=== PATIENT | male | born 1960 | race Caucasian/White ===

== ENCOUNTER 2018-05-23 21:27 | Observation (INO) | payer OTHER ==
[~2018-05-23] VITALS: Ht 177.8 cm; Wt 97.9 kg
[2018-05-23 22:00] LABS: BASOPHILS ABSOLUTE AUTO 0.11 K/mm3 (0.00-0.23); BASOPHILS PERCENT AUTO 1 % (0-2); EOSINOPHILS ABSOLUTE AUTO 0.17 K/mm3 (0.00-0.68); EOSINOPHILS PERCENT AUTO 2 % (0-6); Hemoglobin 16.5 g/dL (13.5-17.5); IMMATURE GRAN ABSOLUTE AUTO 0.04 K/mm3 (0.00-0.10); IMMATURE GRAN PERCENT AUTO 0 % (0-1); LYMPHOCYTES ABSOLUTE AUTO 4.05 K/mm3 (0.84-5.20); LYMPHOCYTES PERCENT AUTO 36 % (21-46); MONOCYTES ABSOLUTE AUTO 0.94 K/mm3 (0.16-1.47); MONOCYTES PERCENT AUTO 8 % (4-13); Mean Corpuscular HGB Conc 34.4 g/dL (31.5-36.5); Mean Corpuscular Volume 87 fL (80-100); Mean Platelet Volume 10.5 fL (9.1-12.4); NEUTROPHILS ABSOLUTE AUTO 5.89 K/mm3 (1.96-9.15); NEUTROPHILS PERCENT AUTO 53 % (41-73); Platelet Count 209 K/mm3 (150-400); RDW Standard Deviation 38.8 fL (35.1-46.3)
[2018-05-23] MEDS ORDERED: PRED20 PO (22:06)
[2018-05-23] MEDS ORDERED: FOLBIC RF TABL1 EACH PO (22:11)
[2018-05-23] MEDS ORDERED: CYAN1000I PO (22:11)
[2018-05-23 22:12] LABS: Anion Gap 6 mmol/L (6-16); Blood Urea Nitrogen 18 mg/dL (8-24); Bun/Creatinine Ratio 16.8 (12.0-20.0); CO2, Blood 27 mmol/L (21-32); Calcium, Blood 8.6 mg/dL (8.5-10.1); Chloride, Blood 102 mmol/L (98-108); Creatinine, Blood 1.07 mg/dL (0.60-1.20); Glomerular Filtration Rate >60 (60-); Glucose, Blood 121 mg/dL (70-99); Potassium, Blood 4.1 mmol/L (3.5-5.5); Sodium, Blood 135 mmol/L (136-145)
[2018-05-23] MEDS ORDERED: Hair, Skin & N1 EACH PO (22:12)
[2018-05-23] MEDS ORDERED: Multivitamins1 EACH PO (22:13)
--- NOTE | 2018-05-23 23:46 | NUR ---
ASSUMING CARE OF PT AT THIS TIME. PT REPORT RECEIVED VIA TELEPHONE WITH OFFGOING NURSE, NATALIE SHEFFIELD. WAITING FOR PT TRANSFER FROM ED TO ICU AT THIS TIME.
--- NOTE | 2018-05-23 23:49 | NUR ---
PHARMACY PER EMAR AND REPORT FROM OFFGOING ED NURSE, NATALIE RN - BENADRYL, PEPCID, AND SOLUMEDROL ADMINISTERED IN ED AT 2200. CT, PHARMACIST INSTRUCTED TO ADMINISTER 0000 BE[address], BUT CT IS PLANNING TO CHANGE SOLUMEDROL SCHEDULED TIMES
--- NOTE | 2018-05-24 | NUR ---
ASSESSMENT PT ANXIOUS, COOPERATIVE, RESPONDS TO VERBAL STIMULI, SPONT OPENS EYES, TALKS AND ANSWERS QUESTIONS APPROPRIATELY, FREQUENTLY REPEATS QUESTIONS. SENSATION INTACT. PT DENIES N/T. PT GOFF. NO WEAKNESS NOTED. PT AMBULATES INDEPENDENTLY WITHIN ROOM. ASSIST WITH LINES/CORDS. PT DENIES PAIN/DISCOMFORT AT THIS TIME. PT STATES, "MY TONGUE IS LESS SWOLLEN AT THIS TIME". LUNGS CLEAR. PT ON RA. OXY SAT >90%. RR RR. DENIES SOB. NO COUGHING. AFEBRILE. NSR TO ST. HR 90'S TO 100'S. SBP 150'S. HYDRALAZINE ADMINSITERED IN ED. STRONG PUSLES. WARM, PINK SKIN. ACTIVE BT X4 QUADRANTS. AOD SOFT, NONTENDER. MILD DIST (PT STATES DISTENTION IS NORMAL). NO N/V. NO BM. PT NPO D/T ANGIOEDEMA. PT HAS BATHROOM PRIVELEGES. NO UO AT THIS TIME. PIV X1 - SL.
[2018-05-24] MEDS ORDERED: IBUP800 PO (00:17)
[2018-05-24] MEDS ORDERED: DIPH50 PO (00:18)
[2018-05-24] MEDS ORDERED: PSEU120ER PO (00:19)
--- NOTE | 2018-05-24 01:00 | NUR ---
DR. MCKENZIE SBP REMAINS 170'S. PT ANXIOUS. INFORMED DR. MCKENZIE OF VS (SEE VS FS) AND ANXIETY. HYDRALAZINE ADMINSITERED AT [address] MCKENZIE INSTRUCTED TO ADMINSITER HYDRALAZINE AT THIS TIME AND ATIVAN 0.5 MG PO - WAITING FOR VERIFICATION OF MEDICATION FROM PHARMACY AT THIS TIME.
[2018-05-24 04:09] LABS: Hematocrit 47.6 % (37.0-53.0); Hemoglobin 16.4 g/dL (13.5-17.5); Mean Corpuscular HGB 29.5 pg (26.0-34.0); Mean Corpuscular HGB Conc 34.5 g/dL (31.5-36.5); Mean Corpuscular Volume 86 fL (80-100); Mean Platelet Volume 10.6 fL (9.1-12.4); Platelet Count 194 K/mm3 (150-400); RDW Standard Deviation 37.8 fL (35.1-46.3); Red Blood Cell Count 5.55 M/mm3 (4.30-5.90); White Blood Cell Count 14.36 K/mm3 (4.00-11.30)
[2018-05-24 04:29] LABS: Alanine Aminotransfer (ALT/SGP 69 U/L (12-78); Albumin, Blood 4.3 g/dL (3.4-5.0); Albumin/Globulin Ratio 1.3 (0.8-1.8); Alk Phos 69 U/L (50-136); Anion Gap 7 mmol/L (6-16); Aspartate Aminotrans (AST/SGOT 32 U/L (12-37); Bilirubin, Total 0.5 mg/dL (0.1-1.0); Blood Urea Nitrogen 17 mg/dL (8-24); Bun/Creatinine Ratio 18.5 (12.0-20.0); CO2, Blood 25 mmol/L (21-32); Calcium, Blood 8.9 mg/dL (8.5-10.1); Chloride, Blood 107 mmol/L (98-108); Creatinine, Blood 0.92 mg/dL (0.60-1.20); Globulin, Blood 3.2 g/dL (2.2-4.0); Glomerular Filtration Rate >60 (60-); Glucose, Blood 160 mg/dL (70-99); Potassium, Blood 3.9 mmol/L (3.5-5.5); Sodium, Blood 139 mmol/L (136-145); Total Protein, Blood 7.5 g/dL (6.4-8.2)
--- NOTE | 2018-05-24 04:32 | NUR ---
DR. MCKENZIE NO ANXIETY NOTED AFTER ADMINISTERING ATIVAN. DR. MCKENZIE ORDERED PRN ATIVAN.
--- NOTE | 2018-05-24 05:11 | NUR ---
SHIFT ASSESSMENT NO ACUTE CHANGES NOTED T/O SHIFT. PT SLEPT T/O SHIFT. NO ANXIETY NOTED AFTER ADMINISTERING ATIVAN. OTHERWISE PT CALM, QUIET, COOPERATIVE, RESPODNS TO VERBAL STIMULI, SPONT OPENS EYES, TALKS AND ANSWERS QUESTIONS APPROPRIATELY. SENSATION INTACT. PT DENIES N/T. PT GOFF. NO WEAKNESS NOTED. PT AMBULATES INDEPENDENTLY WITHOUT ROOM. NURSE ASSISTS WITH LINES/CORDS. PT DNEIES PAIN/DISCOMFORT T/O SHIFT. NO SWELLING OF TONGUE NOTED. LUNGS CLEAR. PT ON RA. OXY SAT 90% AND GREATER. RR 11 TO 20'S. DENIES SOB. NO COUGHING. AFEBRILE. NSR TO ST. HR 90'S TO 110'S. BP STABLE AT THIS TIME - SEE VS FS. HYDRALAZINE ADMINISTERED DURING SHIFT FOR HYPERTENSION. STRONG PULSES. WARM, PINK SKIN. ACTIVE BT X4 QUADRANTS. ABD SOFT, NONTENDER, MID DIST. NO N/V. NO BM. PT NPO D/T ANGIOEDEMA. PT HAS BATHROOM PRIVELEGES - YELLOW, CLEAR UREINNTOED. PIV X1 - SL. WILL CONT TO MONITOR PT AND WILL PROVIDE BEDSIDE REPORT TO ONCOMING NURSE THIS AM.
--- NOTE | 2018-05-24 07:54 | NUR ---
STARTF SHIFT NOTE: RECEIVED REPORT FROM NETTIE NGUYEN, PATIENT IS A+Ox4, DENIES PAIN OR SHORTNESS OF BREATH, REPORTS NO CHEST PAIN/DISCOMFORT, PATIENT STATES "I CAN SWALLOW AGAIN AND MY TONGUE IS NOT SWOLLEN ANYMORE", VSS, AFEBRILE, INDEPENDENT IN ROOM, DR. MCMAHAN AT BEDSIDE, CALL LIGHT IN REACH, WILL CONTINUE TO MONITOR.
--- NOTE | 2018-05-24 08:59 | NUR ---
PEPCID AND PREDNISONE GIVEN IV THIS AM, DR. MCMAHAN CHANGED MEDS TO PO AND THEY SHOWED ON EMAR AGAIN, LEONARDA, PHARMACIST, NOTIFIED, AND WILL CHANGE TIMES.
[2018-05-24] MEDS ORDERED: B-125000 MCG (09:18)
[2018-05-24] MEDS ORDERED: MEGARED OMEGA-1 EAC1 (09:20)
[2018-05-24] MEDS ORDERED: ZINC15 (09:21)
[2018-05-24] MEDS ORDERED: POTBIC25 (09:22)
[2018-05-24] MEDS ORDERED: UBID100 (09:22)
[2018-05-24] MEDS ORDERED: MAGOXI400 (09:23)
[2018-05-24] MEDS ORDERED: ASCO500 (09:24)
[2018-05-24] MEDS ORDERED: ERGO400 (09:24)
[2018-05-24] MEDS ORDERED: TURMERIC500 M2 (09:25)
[2018-05-24] MEDS ORDERED: PROBIOTIC250 MG (09:26)
--- NOTE | 2018-05-24 11:13 | NUR ---
PATIENT'S AT BEDSIDE, UPDATE PROVIDED AND MEDICATION LIST REVIEWED AND SUPPLEMENTS ADDED, PATIENT CONTINUES TO BE NPO AT THIS TIME, CALL LIGHT IN REACH, WILL CONTINUE TO MONITOR.
--- NOTE | 2018-05-24 11:51 | NUR ---
CALLED DR. MCMAHAN TO UPDATE ON PATIENT STATUS, PATIENT STATED "PLEASE CALL THE DOCTOR AND LET HER KNOW THAT I WANT TO DRINK AND EAT SOMETHING AND I WANT TO GO HOME", DIET WAS ORDERED, PATIENT TO REMAIN IN HOSPITAL ONE MORE NIGHT PER DR. MCMAHAN.
--- NOTE | 2018-05-24 11:56 | NUR ---
PATIENT WAS UPDATED ON DR. MCMAHAN'S RESPONSE, AND DAUGHTER IN ROOM, PATIENT WAS ALSO PROVIDED WITH THE OPTION OF LEAVING AMA BUT ACCORDING TO AND DAUGHTER THAT IS NOT AN OPTION AT THIS TIME, PATIENT IS PLEASANT OTHERWISE AND RESTING COMFORTABLY, CALL LIGHT IN REACH, WILL CONTINUE TO MONITOR.
--- NOTE | 2018-05-24 17:16 | NUR ---
REPORT CALLED TO NETTIE HARE, PATIENT WILL BE TRANSFERRED TO [facility] VIA WHEELCHAIR.
--- NOTE | 2018-05-24 17:23 | NUR ---
PATIENT AMBULATED TO ROOM 211 ACCOMPANIED BY MARIVEL, HATCHERY LABORER, AND , ALL BELONGINGS AND CHART WITH PATIENT.
--- NOTE | 2018-05-24 17:33 | NUR ---
PT WALKED TO ROOM ESCORTED BY PATIENT IMPLEMENTATION SPECIALIST FROM ICU AND . PT A/O X 4, VSS, SITTING UP AT BEDSIDE EATING DINNER. IN ROOM PT STATES NO PAIN AT THIS TIME. PT PLEASANT/COOPERATIVE
--- NOTE | 2018-05-25 04:15 | NUR ---
SHIFT SUMMARY: PT HAS DONE WELL THIS SHIFT. SENSATION INTACT. NEGATIVE FOR SWELLING OR ANY NUMBNESS/TINGLING. GIVEN BENADRYL PER EMAR. JOSE ENRIQUE DIET. VOIDING. IND IN ROOM. SLAINE LOCKED. PLAN IS FOR PT TO DISCHARGE TODAY. NO CONCERNS AT THIS TIME. CALL LIGHT IN REACH.
--- NOTE | 2018-05-25 07:50 | NUR ---
PT INDEPENDANT IN ROOM, A/0 X 4, DRESSED/SHOWERED HIMSELF THIS MORNING
[2018-05-25] MEDS ORDERED: BENADRYL25 MG PO (11:21)
[2018-05-25] MEDS ORDERED: FAMO20 PO (11:22)
[2018-05-25] MEDS ORDERED: PRED10 PO (11:26)
[2018-05-25] MEDS ORDERED: EPINEPHRIN0.3 MG/0.3 IM (11:29)
--- NOTE | 2018-05-25 11:53 | NUR ---
SHIFT SUMMARY/DC PT HAS HAD NO ACUTE CHANGES THIS SHIFT, NO COMPLAINTS OF ANY KIND. REVIEWED DC INSTRUCTIONS W/PT & SPOUSE, BOTH VERBALIZED UNDERSTANDING. EDUCATED PT ON EPIPEN AND PREDNISONE TAPER. PT WALKED OUT TO DC IN PRIVATE VEHICLE.
== END 2018-05-25 13:00 | disposition home or self-care (01) ==
LOC: ER 21:27 → ICUW 21:28 → SURS 05-24 17:22
PROVIDERS: Emergency Medicine; ADMIT Internal Medicine
DX: T78.3XXA Angioneurotic edema, initial encounter (principal); I10 Essential (primary) hypertension; R00.0 Tachycardia, unspecified; D72.829 Elevated white blood cell count, unspecified; T38.0X5A Adverse effect of glucocorticoids and synthetic analogues, initial encounter; F43.9 Reaction to severe stress, unspecified; Z79.899 Other long term (current) drug therapy; Z88.2 Allergy status to sulfonamides
CPT/HCPCS: 36415; 80048; 80053; 85025; 85027; 90686; 96361; 96372; 96374; 96375; 96376; 99285-25; G0378; J0360; J1200; J1650; J2060; J2930; J3490; J7030

== ENCOUNTER → 2018-06-24 | Outpatient (CLI) | payer OTHER ==
[~2018-06-24] MED LIST: ASCO500; B-125000 MCG; BENADRYL25 MG PO; CYAN1000I PO; DIPH50 PO; EPINEPHRIN0.3 MG/0.3 IM; ERGO400; FAMO20 PO; FOLBIC RF TABL1 EACH PO; Hair, Skin & N1 EACH PO; IBUP800 PO; MAGOXI400; MEGARED OMEGA-1 EAC1; Multivitamins1 EACH PO; POTBIC25; PRED10 PO; PRED20 PO; PROBIOTIC250 MG; PSEU120ER PO; TURMERIC500 M2; UBID100; ZINC15
== END ==
LOC: LAB EV 16:10 → LAB SHORT 16:10
DX: N39.0 Urinary tract infection, site not specified (principal)
CPT/HCPCS: 87086

== ENCOUNTER → 2024-09-25 | Outpatient (CLI) | payer OTHER ==
[~2024-09-25] MED LIST changes: +DELTASONE20 MG PO; +EPIPEN0.3 MG/0.3 IM
== END ==
LOC: LAB SHORT 16:35 → LAB 16:35
DX: R30.0 Dysuria (principal)
CPT/HCPCS: 87086; 87147